=== PATIENT | male | born 1975 | race African-American/Black ===

== ENCOUNTER 2023-09-21 18:43 | Emergency (ER) | payer OTHER, SELFPAY ==
--- NOTE | 2023-09-21 | ECG_ITS ---
Test Reason : DISC SHOULDER PAIN/CP Blood Pressure : / mmHG Vent. Rate : 066 BPM Atrial Rate : 066 BPM P-R Int : 178 ms QRS Dur : 090 ms QT Int : 386 ms P-R-T Axes : 042 -02 -02 degrees QTc Int : 404 ms Normal sinus rhythm Minimal voltage criteria for LVH, may be normal variant ( R in aVL ) Nonspecific T wave abnormality Abnormal ECG No previous ECGs available Referred By: Generic ED Physician Electronically Signed By:DANIEL ELIZABETH
--- NOTE | ~2023-09-21 | CT_ITS ---
EXAMINATION: CT CERVICAL SPINE WITHOUT CONTRAST CLINICAL INFORMATION: Pain. COMPARISON: None available. TECHNIQUE: Contiguous axial noncontrast CT scan images of the cervical spine obtained. Sagittal and coronal reformatted images also obtained. This CT examination was performed using dose optimization techniques as appropriate, variously including the following: *Automated exposure control *Adjustment of mA and/or kV according to patient size (this includes techniques or standardized protocols for targeted exams where dose is matched to indication/reason for exam; i.e. extremities or head) *Use of iterative reconstruction technique DLP: 596 mGy-cm FINDINGS: Streak/attenuation artifact related to patient body habitus slightly limits evaluation. The alignment is within normal limits. The disc spaces are fairly well-maintained. The spinal canal and neuroforamen are patent. The bone mineralization is normal. There is no fracture. The soft tissues are unremarkable. The visualized upper lung king are clear. CT/CT cervical spine wo IV con IMPRESSION: No significant abnormality identified. Fleischner guidelines were followed.
--- NOTE | ~2023-09-21 | XR_ITS ---
EXAMINATION: XR CHEST CLINICAL INFORMATION: Concern for pneumonia. COMPARISON: None available. TECHNIQUE: Frontal view of the chest was obtained. FINDINGS: No significant abnormality is noted involving the heart, lungs, mediastinum, bony thorax or soft tissues. XR/XR chest 1V IMPRESSION: Unremarkable examination.
[2023-09-21 19:10] VITALS: BP 143/88; PULSE 72; RESP 18; TEMP 36.7; O2SAT 96; BMI 33.9
--- NOTE | 2023-09-21 19:10 | MHC.EDTECH ---
Patient brought into triage area.EKG taken per order and signed by provider,labs obtained and sent to lab.
[2023-09-21 19:11] LABS: MANUAL DIFF FLAG NO
[2023-09-21 19:12] LABS: Basophils Percent Auto 0.4 % (0-2); Eosinophils Absolute Auto 0.1 X10*3/uL (0.0-0.4); Eosinophils Percent Auto 0.6 % (0-4); Hematocrit 45.4 % (42.0-52.0); Hemoglobin 15.9 g/dl (14.0-18.0); Imm Gran Abs Auto 0.02 X10*3/uL (0.00-0.03); Imm Gran Pct Auto 0.2 % (0.0-0.4); Lymphocytes Absolute Auto 3.6 X10*3/uL (1.2-4.9); Lymphocytes Percent Auto 35.9 % (20-40); Mean Corpuscular Hemoglobin 30.6 pg (27.0-33.0); Mean Corpuscular Volume 87.3 fL (80.0-98.0); Mean Platelet Volume 9.7 fL (9.4-12.4); Monocytes Absolute Auto 0.8 X10*3/uL (0.1-1.2); Neutrophils Absolute Auto 5.5 x10*3/uL (2.0-8.3); Neutrophils Percent Auto 54.9 % (45-73); Platelet Count 249 X10*3/uL (160-400); Red Cell Distribution Width 12.4 % (11.0-16.0)
[2023-09-21 19:33] LABS: Alanine Aminotransferase 36 U/L (0-40); Albumin Level 4.7 g/dL (3.5-5.0); Alkaline Phosphatase 68 U/L (39-117); Anion Gap 14 (12-20); Aspartate Amino Transferase 44 U/L (5-37); Bilirubin Total 0.2 mg/dL (0.0-1.0); Blood Urea Nitrogen 27 mg/dL (9-16); Calcium 9.5 mg/dL (8.4-10.2); Carbon Dioxide 20 mmol/L (22-29); Chloride 111 mmol/L (96-108); Creatinine Clr Calc Pharmacy 80.5; Estimated Glomerular Filt Rate 51; Glucose Random 87 mg/dL (60-115); Sodium 141 mmol/L (135-145); Total Protein 7.5 g/dL (6.5-8.0)
[2023-09-21 19:42] LABS: Troponin-I High Sensitivity < 2.7 ng/L (<3.5-35.0)
[2023-09-22] MEDS: 0.9 % Sodium Chloride 1,000 ML 999 ML IV (01:13)
--- NOTE | 2023-09-22 01:38 | PC.NURSE ---
IV established, labs obtained. IVF infusing. Pt aware of plan for CT. Continue to monitor.
[2023-09-22 01:54] LABS: Troponin-I High Sensitivity < 2.7 ng/L (<3.5-35.0)
--- NOTE | 2023-09-22 02:17 | ED_ITS ---
HPI - General Adult General Chief complaint: General Medical Stated complaint: pain/ disc. shoulder/ chest pain-> leg Time Seen by Provider: 09/22/23 00:32 Source: patient Mode of arrival: ambulatory Limitations: no limitations History of Present Illness HPI narrative: 47-year-old male healthy with no past significant medical history presents to the ED for posterior cervical spine tenderness radiating down right arm. She states also low back pain radiating down right leg. Patient denies any urinary/bowel incontinence. Patient denies any recent trauma. Patient denies any facial droop, headache, nausea, vomiting, or paralysis of extremities. Patient states posterior neck pain radiating down right arm and right shoulder upper chest area. Patient denies any actual chest pain or shortness of breath. Patient denies any recent trauma to the chest. Patient denies any recent strenuous workout, any recent cervical spine manipulation by a chiropractor or himself, or any recent trauma. Patient denies any headache. Related Data Allergies Allergy/AdvReac Type Severity Reaction Status Date / Time No Known Allergies Allergy Verified 09/21/23 19:10 [No Known Allergies*] Review of Systems 2 Review of Systems: posterior neck pain radiating down right arm/shoulder/upper chest pain. Yes all other systems are reviewed and are negative [facility] Social History Social History Smoked in Last 30 Days: No Use of substances other than those prescribed or required for medical reasons: No Advance Directives: No Advance Directives Information Provided: No Physical Exam ED Vital Signs: Vital Signs - 24 hr 09/22/23 04:28 09/22/23 05:44 Temperature 98.6 F 98.5 F Pulse Rate 67 59 Respiratory Rate 17 19 Blood Pressure 134/82 125/88 Pulse Oximetry 97 97 Oxygen Delivery Method Room Air Room Air BMI result Body Mass Index 33.9 Const General: cooperative, healthy appearing, comfortable, no acute distress, well developed, alert, awake and Physically active Orientation/consciousness: oriented to person, oriented to place, oriented to time and patient oriented x3 HENMT Head: Yes normal to inspection, Yes No palpable skull fracture present, Yes normocephalic, Yes atraumatic and No abrasion Eyes General: appearance normal, both eyes and all related structures Neck Neck: Yes normal visual inspection, Yes full ROM, Yes no lymphadenopathy, Yes no meningeal signs, Yes trachea midline, Yes supple, No anterior neck swelling and Yes tender (posterior cervical spine tenderness. ) Chest Chest palpation & inspection: normal inspection of the chest and normal palpation of entire chest wall Resp Effort & Inspection: normal respiratory effort and able to speak in complete sentences Auscultation: clear to auscultation bilaterally Cardio Jugular venous distension: no JVD Heart sounds: S1 normal heart sound present and S2 normal heart sound present GI Inspection: Yes normal to inspection and No abdominal wall ecchymosis Palpation (GI): Soft to palpation, not firm, nontender, no guarding and not rigid General: No CVA tenderness and Yes no CVA tenderness Back/Spine/Pelvis Back: no CVA tenderness, No CVA tenderness and No back tenderness Skin General skin exam: no rashes or lesions noted, elasticity normal and turgor normal Neuro General: oriented to person, oriented to place, oriented to time, patient oriented x3, gait normal, tone normal, moves all extremities, Normal light touch and pain sensation, no meningeal signs, no focal motor deficits, CN's II-XI intact bilaterally and normal sensation to monofilament Cranial nerves: Yes CN's II-XII intact bilaterally Extrem Other: Bilateral lower extremity negative for any swelling, pitting edema, calf tenderness, crepitus, or ecchymosis. Motor/neuro/vascular exam intact. General: Yes normal to inspection and Yes full ROM Shoulder/upper arm images: 2 1. Tenderness to palpation. Negative for crepitus ecchymosis, erythema, rash, or deformity. Motor/neuro/vascular exam intact of all extremity. 2. Tenderness to palpation. Negative for crepitus ecchymosis, erythema, rash, or deformity. Motor/neuro/vascular exam intact of all extremity. Psych Appearance: grossly normal, well kempt and not disheveled Medications Administered Discontinued Medications Generic Name Dose Route Start Last Admin Trade Name Freq PRN Reason Stop Dose Admin Sodium Chloride 1,000 mls @ 999 mls/hr 09/22/23 00:51 09/22/23 05:46 Ns IV 09/22/23 01:51 Infused .Q1H1M STA Infusion Medical Decision Making Medical Decision Making MDM Narrative: 47-year-old male with a past medical history presents to ED for posterior neck pain radiating down right arm right shoulder right upper chest near shoulder area. Patient states also some low back pain radiating down right leg that resolved on its own. Patient has normal gait. Patient denies any paralysis. Negative for any neuro deficits. Not suspecting cauda equina compression or epidural abscess. Patient does not have any anterior neck pain or lateral side neck pain. Not suspecting aortic dissection ,stroke, or vetebral artery dissection. patient denies dizziness. Patient was sent for CT scan to check for any cervical spine arthritis. Labs were drawn from triage which shows MC. Case discussed with Dr. Solomon who states if patient's kidney function worsened after board-like of fluids he could be admitted. CT scan pending will sign out to Dr. Silverman. Patient will need repeat chemistry I received sign-out from my colleague GAIL haney --reviewed chemistry shows normal creatinine. Patient was likely dehydrated. -cervical CT scan shows no significant abnormality, patient being discharged Differential Diagnosis Differential Diagnoses: The differential diagnosis associated with the presentation includes Admission/Observation Consideration of admission/observation: Escalation of care including admission/observation considered Consult Healthcare Provider Management of the patient was discussed with: Hospitalist (Dr. Solomon) Lab Data 09/21/23 19:07 09/22/23 04:26 Labs: Lab Results 09/21/23 09/22/23 09/22/23 Range/Units 19:07 01:13 04:26 WBC 10.0 (4.8-10.8) X10*3/uL RBC 5.20 (4.60-5.80) X10*6/uL Hgb 15.9 (14.0-18.0) g/dl Hct 45.4 (42.0-52.0) % MCV 87.3 (80.0-98.0) fL MCH 30.6 (27.0-33.0) pg MCHC 35.0 (31.0-36.0) g/dl RDW 12.4 (11.0-16.0) % Plt Count 249 (160-400) X10*3/uL MPV 9.7 (9.4-12.4) fL Immature Gran % (Auto) 0.2 (0.0-0.4) % Neut % (Auto) 54.9 (45-73) % Lymph % (Auto) 35.9 (20-40) % Sanders % (Auto) 8.0 (2-11) % Eos % (Auto) 0.6 (0-4) % Baso % (Auto) 0.4 (0-2) % Lymph # (Auto) 3.6 (1.2-4.9) X10*3/uL Sanders # (Auto) 0.8 (0.1-1.2) X10*3/uL Eos # (Auto) 0.1 (0.0-0.4) X10*3/uL Baso # (Auto) 0.0 (0.0-0.2) X10*3/uL Abs Immat Gran (auto) 0.02 (0.00-0.03) X10*3/uL Absolute Neuts (auto) 5.5 (2.0-8.3) x10*3/uL Absolute Nucleated RBC 0.000 (0.0-0.012) X10*3/uL Nucleated RBC % (auto) 0.0 (0.0-0.2) /100WBC Sodium 141 141 (135-145) mmol/L Potassium 4.0 4.1 (3.3-5.1) mmol/L Chloride 111 H 111 H (96-108) mmol/L Carbon Dioxide 20 L 22 (22-29) mmol/L Anion Gap 14 12 (12-20) BUN 27 H 23 H (9-16) mg/dL Creatinine 1.49 H 1.17 (0.5-1.4) mg/dL Estim Creat Clear Calc 80.5 102.5 Estimated GFR 51 > 60 Random Glucose 87 91 (60-115) mg/dL Calcium 9.5 9.2 (8.4-10.2) mg/dL Total Bilirubin 0.2 0.5 (0.0-1.0) mg/dL AST 44 H 39 H (5-37) U/L ALT 36 32 (0-40) U/L Alkaline Phosphatase 68 54 (39-117) U/L Troponin I High Sens < 2.7 < 2.7 (<3.5-35.0) ng/L Total Protein 7.5 6.8 (6.5-8.0) g/dL Albumin 4.7 4.3 (3.5-5.0) g/dL Independent Interpretation I performed an independent interpretation of an: Plain X-Ray Radiology Impression Discussion of test interpretation with radiology: I have reviewed the radiologist's reading. Independent Historian Clinical information obtained from an independent historian. History obtained from or confirmed by: Other (patient) External Record Review External record reviewed: Other (prior visits) Discharge Plan Discharge Clinical Impression: MC (acute kidney injury), Neck pain Patient Disposition: Home, Self-Care Instructions: Acute Kidney Injury (DC) Additional Instructions: Recommend follow-up with the primary care provider. Return to the ED immediately for any urinary/bowel incontinence, facial droop, slurred speech, severe neck pain, nausea, vomiting, paralysis of extremities, inability to walk, neck stiffness, fever, chills, photophobia, headache, swelling of extremities, numbness/tingling, loss of vision, or any other concerning symptoms. Interventions: ED Discharge Assessment Last Done: 09/22/23 05:44 Discharge Date/Time: 09/22/23 05:46 Print Language: Guamanian
[2023-09-22 04:28] VITALS: BP 134/82; PULSE 67; RESP 17; TEMP 37; O2SAT 97
[2023-09-22 04:45] LABS: Alanine Aminotransferase 32 U/L (0-40); Albumin Level 4.3 g/dL (3.5-5.0); Alkaline Phosphatase 54 U/L (39-117); Anion Gap 12 (12-20); Aspartate Amino Transferase 39 U/L (5-37); Bilirubin Total 0.5 mg/dL (0.0-1.0); Blood Urea Nitrogen 23 mg/dL (9-16); Calcium 9.2 mg/dL (8.4-10.2); Carbon Dioxide 22 mmol/L (22-29); Chloride 111 mmol/L (96-108); Creatinine Clr Calc Pharmacy 102.5; Estimated Glomerular Filt Rate > 60; Glucose Random 91 mg/dL (60-115); Potassium 4.1 mmol/L (3.3-5.1); Sodium 141 mmol/L (135-145); Total Protein 6.8 g/dL (6.5-8.0)
[2023-09-22 05:44] VITALS: BP 125/88; PULSE 59; RESP 19; TEMP 36.9; O2SAT 97
== END 2023-09-22 05:46 | disposition home or self-care (01) ==
PROVIDERS: Physician Assistant; Emergency Provider Emergency Medicine
DX: M54.2 Cervicalgia (principal); N17.9 Acute kidney failure, unspecified
CPT/HCPCS: 36415; 71045; 72125; 80053; 84484; 85025; 93005; 96360; 96361; 99285

== ENCOUNTER → 2023-09-21 19:01 | Outpatient (BNV) | payer OTHER, SELFPAY | PROVIDERS: Emergency Provider Emergency Medicine; Visit Provider Internal Medicine | DX: R94.31 Abnormal electrocardiogram [ECG] [EKG] (principal) | CPT/HCPCS: 93010 ==